=== PATIENT | female | born 1950 | race Caucasian/White ===

== ENCOUNTER 2018-11-11 20:55 | Emergency (ER) | payer OTHER ==
--- OUTSIDE RECORDS SUMMARY | 2018-11-11 20:57 | XMS REPORT | Clinical Summary ---
:1950 Author Organization [facility] Address [address] [place] [address] Care Team Providers Name Role Phone Robby Nelson MD Primary Care Provider Allergies Active Allergy Reactions Severity Noted Date Comments Timolol Rash High 09/01/2018 Brimonidine-Timolol 06/23/2018 Difluprednate Other (See Comments) 09/01/2018 increasing high blood pressure causing eye stroke Cephalexin 06/25/2018 Medications Medication Sig Dispensed Refills Start Date End Date Status umeclidinium (INCRUSE Inhale. 0 Active ELLIPTA) 62.5 mcg/actuation blister with device levoFLOXacin Take 500 mg by 0 Active (LEVAQUIN) 500 MG mouth daily. tablet aspirin 325 MG tablet Take 325 mg by 0 Active mouth daily. brinzolamide-brimonid Administer 1 drop 16 mL 3 09/01/2018 Active ine (SIMBRINZA) 1-0.2 to both eyes 3 % drops,suspension (three) times a day. TRAVATAN Z 0.004 % INSTILL 1 DROP INTO 3 08/28/2018 Active EACH EYE ONCE A DAY Active Problems Problem Noted Date Chronic angle-closure glaucoma of both eyes, moderate stage 09/06/2018 Overview: IOP satisfactory. Continue Simbrinza TID OU. Taking Travatan Qam OU. Nuclear sclerotic cataract of both eyes 09/06/2018 Overview: Not visually significant. Defer surgery. Rx glasses given. Encounters Date Type Specialty Care Team Description 09/06/2018 Office Visit Ophthalmology Haydee Paige Chronic angle-closure glaucoma of both eyes, moderate stage (Primary Dx); MD Dee Nuclear sclerotic cataract of both eyes 09/01/2018 Office Visit Ophthalmology Haydee Paige Chronic angle-closure glaucoma of both eyes, moderate stage (Primary Dx); MD Dee Nuclear sclerotic cataract of both eyes 06/25/2018 [facility] MD Layne (CVA), unspecified mechanism (HCC) (Primary Dx) after 11/10/2017 Family History Medical History Relation Name Comments Stroke Father Diabetes Mother Stroke Mother Relation Name Status Comments Father Mother Social History Tobacco Use Types Packs/Day Years Used Date Never Smoker Smokeless Tobacco: Never Used Alcohol Use Drinks/Week oz/Week Comments No Alcohol Habits Answer Date Recorded How often do you have a drink containing alcohol? Never 06/25/2018 How many drinks containing alcohol do you have on a typical Not asked day when you are drinking? How often do you have six or more drinks on one occasion? Not asked Sex Assigned at Date Recorded Not on file Job Start Date Occupation Industry Not on file Not on file Not on file Travel History Travel Start Travel End No recent travel history available. Last Filed Vital Signs Vital Sign Reading Time Taken Blood Pressure 149/77 06/25/2018 3:30 PM [employer] Pulse 60 06/25/2018 3:30 PM [employer] Temperature 36.2 C (97.2 F) 06/25/2018 10:52 AM [employer] Respiratory Rate 18 06/25/2018 3:30 PM [employer] Oxygen Saturation 96% 06/25/2018 3:30 PM [employer] Inhaled Oxygen Concentration - - Weight 70.3 kg (155 lb) 06/25/2018 10:52 AM [employer] Height 167.6 cm (5' 6") 06/25/2018 10:52 AM [employer] Body Mass Index 25.02 06/25/2018 10:52 AM [employer] Plan of Treatment Date Type Specialty Care Team Description 12/08/2018 Office Visit Ophthalmology Haydee Paige MD [address] [facility] [address] [place] [id number] Health Maintenance Due Date Last Done Comments BREAST CANCER SCREENING 1999 COLON CANCER SCREENING 1999 SHINGLES VACCINES (#1) 1999 65+ PNEUMOCOCCAL VACCINE (1 of 2 - PCV13) 2014 PNEUMOCOCCAL POLYSACCHARIDE VACCINE AGE 65 AND OVER 2014 INFLUENZA VACCINE 02/22/2019 Procedures Procedure Name Priority Date/Time Associated Comments Diagnosis OCT, OPTIC NERVE - OU - Routine 09/01/2018 10:55 Chronic Results for this BOTH EYES AM [employer] angle-closure procedure are in glaucoma of both the results eyes, moderate section. stage AUTOMATED VISUAL FIELD, Routine 09/01/2018 10:46 Chronic Results for this EXTENDED - OU - BOTH AM [employer] angle-closure procedure are in EYES glaucoma of both the results eyes, moderate section. stage CT ANGIOGRAM NECK W WO STAT 06/25/2018 12:46 Results for this CONTRAST PM [employer] procedure are in the results section. CT ANGIOGRAM HEAD W WO STAT 06/25/2018 12:45 Results for this CONTRAST PM [employer] procedure are in the results section. HEMOGLOBIN A1C STAT 06/25/2018 12:24 Results for this PM [employer] procedure are in the results section. LIPID PANEL STAT 06/25/2018 11:38 Results for this AM [employer] procedure are in the results section. ESTIMATED GFR STAT 06/25/2018 11:38 Results for this AM [employer] procedure are in the results section. PARTIAL THROMBOPLASTIN STAT 06/25/2018 11:38 Results for this TIME (PTT) AM [employer] procedure are in the results section. PROTHROMBIN TIME WITH STAT 06/25/2018 11:38 Results for this INR AM [employer] procedure are in the results section. B NATRIURETIC PEPTIDE STAT 06/25/2018 11:38 Results for this AM [employer] procedure are in the results section. TROPONIN STAT 06/25/2018 11:38 Results for this AM [employer] procedure are in the results section. COMPREHENSIVE METABOLIC STAT 06/25/2018 11:38 Results for this PANEL AM [employer] procedure are in the results section. HC COMPLETE BLD COUNT STAT 06/25/2018 11:38 Results for this W/AUTO DIFF AM [employer] procedure are in the results section. ECG 12-LEAD STAT 06/25/2018 11:36 Results for this AM [employer] procedure are in the results section. [facility], E/M Routine 06/25/2018 11:25 Results for this 30-74 MINUTES AM [employer]SEMBLER procedure are in the results section. CT HEAD WO CONTRAST STAT 06/25/2018 11:13 Results for this AM [employer]SEMBLER procedure are in the results section. after 11/10/2017 Results OCT, Optic Nerve - OU - Both Eyes (09/01/2018 10:55 AM FISH STRINGER ASSEMBLER) Narrative Performed At Right Eye Temporal thickness was showing abnormal thinning. Superior thickness was showing abnormal thinning. Nasal thickness was showing abnormal thinning. Inferior thickness was showing abnormal thinning. Left Eye Temporal thickness was showing abnormal thinning. Superior thickness was showing abnormal thinning. Nasal thickness was showing abnormal thinning. Inferior thickness was showing abnormal thinning. Notes G=35/41 Automated Visual Field, Extended - OU - Both Eyes (09/01/2018 10:46 AM FISH STRINGER ASSEMBLER) Narrative Performed At Right Eye Threshold was 24-2. Strategy was CHARITY. Reliability was good. Progression has been stable. -18.99. Findings include superior altitudinal defect. Left Eye Threshold was 24-2. Strategy was CHARITY. Reliability was poor. Progression has been stable. -15.03. Findings include superior altitudinal defect. CTA Neck W Wo Contrast (06/25/2018 12:46 PM FISH STRINGER ASSEMBLER) Narrative Performed At EXAMINATION: CT ANGIOGRAM NECK W WO CONTRAST RADIANT CLINICAL HISTORY: STROKE COMPARISON:None TECHNIQUE: Imaging of the cervical circulation was obtained from the upper thorax to the skull base during the arterial phase of enhancement. MIP multiplanar and 3D reconstructed images were performed on a separate workstation. CT imaging was performed with iterative reconstruction techniques and/or automated exposure control to reduce radiation dose. FINDINGS: The common carotid arteries, carotid bulbs, internal carotid arteries and external carotid arteries are normal in caliber and contour.There is 0% ICA stenosis by NASCET criteria. The vertebral arteries are patent throughout the visualized cervical segments without significant stenosis. No significant incidental thyroid lesion is seen. IMPRESSION: Unremarkable CTA of the neck. [facility]-[id number] Procedure Note Interface, Radiology Results Incoming - 06/25/2018 12:55 PM FISH STRINGER ASSEMBLER EXAMINATION: CT ANGIOGRAM NECK W WO CONTRAST CLINICAL HISTORY: STROKE COMPARISON: None TECHNIQUE: Imaging of the cervical circulation was obtained from the upper thorax to the skull base during the arterial phase of enhancement. MIP multiplanar and 3D reconstructed images were performed on a separate workstation. CT imaging was performed with iterative reconstruction techniques and/or automated exposure control to reduce radiation dose. FINDINGS: The common carotid arteries, carotid bulbs, internal carotid arteries and external carotid arteries are normal in caliber and contour. There is 0% ICA stenosis by NASCET criteria. The vertebral arteries are patent throughout the visualized cervical segments without significant stenosis. No significant incidental thyroid lesion is seen. IMPRESSION: Unremarkable CTA of the neck. [facility]-[id number] Performing Organization Address [facility]/Zipcode Phone Number JAMAL [address] [place] [address] CTA Head W Wo Contrast (06/25/2018 12:45 PM FISH STRINGER ASSEMBLER) Narrative Performed At EXAMINATION: CT [facility]GIOGRAM HEAD [facility] CLINICAL H[facility]: STROKE COMPARISON:None TECHNIQUE:Imaging of the intracranial circulation was obtained from the skull base to the vertex during the arterial phase of enhancement. MIP multiplanar and 3D reconstructed images were performed on a separate workstation. CT imaging was performed with iterative reconstruction techniques and/or automated exposure control to reduce radiation dose. FINDINGS: No proximal branch occlusion or high grade stenosis of the branches of the mentasta of Rivera, ICAs, or vertebrobasilar system is seen. There is a prominent right posterior commuting artery and a hypoplastic right ICU RN P1 segment. No aneurysm or vascular malformation is identified. The major dural venous sinuses opacify normally. The exam is not tailored to evaluate the brain parenchyma.No gross brain parenchymal abnormality is seen. IMPRESSION: Unremarkable CTA of the brain. [facility]-[id number] Procedure Note Interface, Radiology Results Incoming - 06/25/2018 12:53 PM FISH [employer]ING[employer] ASSEMBLER EXAMINATION: CT ANGIOGRAM HEAD W WO CONTRAST CLINICAL HISTORY: STROKE COMPARISON: None TECHNIQUE: Imaging of the intracranial circulation was obtained from the skull base to the vertex during the arterial phase of enhancement. MIP multiplanar and 3D reconstructed images were performed on a separate workstation. CT imaging was performed with iterative reconstruction techniques and/or automated exposure control to reduce radiation dose. FINDINGS: No proximal branch occlusion or high grade stenosis of the branches of the mentasta of Rivera, ICAs, or vertebrobasilar system is seen. There is a prominent right posterior commuting artery and a hypoplastic right ICU RN P1 segment. No aneurysm or vascular malformation is identified. The major dural venous sinuses opacify normally. The exam is not tailored to evaluate the brain parenchyma. No gross brain parenchymal abnormality is seen. IMPRESSION: Unremarkable CTA of the brain. [facility]-[id number] Performing Organization Address [facility] Phone Number JAMAL [address] [place] [address] Hemoglobin A1c (06/25/2018 12:24 PM FISH STRINGER ASSEMBLER) Hemoglobin A1C 6.0 (H) 4.0 - 5.6 % [facility] Comment: HbA1c cutoffs for diagnosing diabetes: 4.0% - 5.6%=normal 5.7% - 6.4%=increased risk for diabetes (prediabetes) >=6.5%=diabetes Goals for glycemic control (ADA 2016) < 7.0%Target for non adults with diabetes. More or less stringent targets may be appropriate for individual patients. <7.5% Target for Children and adolescents with type 1 diabetes. Performing Organization Address [facility] Centercode Phone Number [facility] DEPARTMENT OF PATHOLOGY AND [address] [place], [place] [phone] Estimated GFR (06/25/2018 11:38 AM FISH STRINGER ASSEMBLER) Estimated GFR 60 mL/min/1.73 m2 [facility] Comment: HOSPITAL CatergoryUnitsInterpretation G1 >=90 Normal or high G2 60-89Mildly decreased [id number] to moderately decreased [id number] to severely decreased G4 15-29Severely decreased G5 <15Kidney failure The eGFR was calculated using the Chronic Kidney Disease Epidemiology Collaboration (CKD-EPI) equation. Interpretation is based on recommendations of the National Kidney Foundation-Kidney Disease Outcomes Quality Initiative (NKF-KDOQI) published in 2014. Specimen Plasma specimen Performing Organization Address [facility] Phone Number [facility] DEPARTMENT OF PATHOLOGY AND [address] [place] [phone] Troponin (06/25/2018 11:38 AM FISH STR[employer] ASSEMBLER) Troponin <0.30 0.00 - 0.30 ng/mL [facility] Comment: 0.30 - 1.49 ng/mlMay indicate increased risk of acute coronary syndrome. >=1.5 ng/mlConsistent with acute myocardial infarction. The diagnostic value of a single normal or non-diagnostic result is questionable.Serial samples at 2-6 hour intervals are required to rule out acute myocardial injury. Specimen Plasma specimen Performing Organization Address [facility] Centercode Phone Number [facility] DEPARTMENT OF PATHOLOGY AND [address] [place] [phone] [place] [phone] Partial thromboplastin time, activated (06/25/2018 11:38 AM FISH STRINGER ASSEMBLER) PTT 27.1 23.0 - 36.0 sec [facility] Comment: PTT therapeutic range for unfractionated heparin is 61.0-112.0 seconds which corresponds to Anti-Xa 0.3-0.7 U/ml. Specimen Blood Performing Organization Address City/[facility]/Zipcode Phone Number [facility] DEPARTMENT OF PATHOLOGY AND [address] [place] [phone] Prothrombin time with INR (06/25/2018 11:38 AM FISH STRINGER ASSEMBLER) Prothrombin time 12.9 11.5 - 14.5 sec [facility] INR 1.0 [facility] Comment: HOSPITAL The International Normalized Ratio (INR) is a therapeutic monitoring tool for patients who are stable on oral anticoagulant therapy. An INR of 2.0-3.0 is suggested for deep vein thrombosis/pulmonary embolism. Specimen Blood Performing Organization Address [facility] Phone Number [facility] DEPARTMENT OF PATHOLOGY AND [address] [place] [phone] CBC with platelet and differential (06/25/2018 11:38 AM FISH STR[employer] ASSEMBLER) WBC 9.35 4.50 - 11.00 k/uL [facility] RBC 4.24 4.20 - 5.50 m/uL [facility] HGB 13.4 12.0 - 16.0 g/dL [facility] HCT 39.9 37.0 - 47.0 % [facility] MCV 94.1 82.0 - 100.0 fL [facility] MCH 31.6 27.0 - 34.0 pg [facility] MCHC 33.6 31.0 - 37.0 g/dL [facility] RDW - SD 43.8 37.0 - 55.0 fL [facility] MPV 10.9 8.8 - 13.2 fL [facility] Platelet count 278 150 - 400 k/uL [facility] Nucleated RBC 0.00 /100 WBC [facility] Neutrophils 64.1 39.0 - 69.0 % [facility] Lymphocytes 25.5 25.0 - 45.0 % [facility] Monocytes 8.3 0.0 - 10.0 % [facility] Eosinophils 1.4 0.0 - 5.0 % [facility] Basophils 0.2 0.0 - 1.0 % [facility] Immature granulocytes 0.5Comment: "Immature 0.0 - 1.0 % [facility] granulocytes" [facility] (promyelocytes, myelocytes, metamyelocytes) Specimen Blood Performing Organization Address City/[facility]/Zipcode Phone Number [facility] DEPARTMENT OF PATHOLOGY AND [address] [place] [phone] [place] [address] B natriuretic peptide (06/25/2018 11:38 AM [employer]SEMBLER) BNP 19 0 - 100 pg/mL [facility] Specimen Blood Performing Organization Address City/[facility] Centercode Phone Number [facility] DEPARTMENT OF PATHOLOGY AND [address] [place] [phone] Lipid panel (06/25/2018 11:38 AM [employer]SEMBLER) Cholesterol 251 (H) <200 mg/dL [facility] Triglycerides 142 <150 mg/dL [facility] HDL cholesterol 78 >40 mg/dL [facility] LDL cholesterol 164 (H)Comment: Result <100 mg/dL [facility] obtained by direct [facility] measurement Lipid panel interpretation Irene [facility] Comment: HOSPITAL Total Cholesterol (mg/dL) <200 Desirable 606-398Qroldypegb-xfnl >=240High Triglycerides (mg/dL) <150 Normal 358-741Apavyxmrbq-hioh 200-499High >=500Very high HDL Cholesterol (mg/dL) <40Low (male) <40Low (female) LDL Cholesterol (mg/dL) <100 Optimal 100-129Near or above optimal 147-241Viyhginkws-rbrr 160-189High >=190Very high Risk Catergories that modify LDL goals. Risk CatergoriesLDL goal (mg/dL) CHD and CHD risk equivalent<100 (10-year risk >20%) Multiple (2+) risk factors <130 (10-year risk=<20%) 0-1 risk factors <160 (<10-year risk) Defining levels of lipids in metabolic syndrome Triglycerides>=150 mg/dL HDL Cholesterol Men<40 mg/dL Women<40 mg/dL Non-HDL cholesterol is a second target for therapy in persons with high triglycerides (>=200 mg/dL) Specimen Plasma specimen Performing Organization Address City/[facility]/Zipcode Phone Number [facility] DEPARTMENT OF PATHOLOGY AND [address] [place], [place] [phone] [place] [phone] Comprehensive metabolic panel (06/25/2018 11:38 AM [employer]SEMBLER) Sodium 136 135 - 148 mEq/L [facility] Potassium 3.7 3.5 - 5.0 mEq/L [facility] Chloride 98 98 - 112 mEq/L [facility] CO2 23 (L) 24 - 31 mEq/L [facility] Anion gap 15@ANIO 7 - 15 mEq/L [facility] BUN 11 8 - 23 mg/dL [facility] Creatinine 0.96 (H) 0.50 - 0.90 mg/dL [facility] Glucose 102 (H) 65 - 99 mg/dL [facility] Calcium 9.6 8.8 - 10.2 mg/dL [facility] Protein 7.8 6.3 - 8.3 g/dL [facility] Comment: HOSPITAL 4.6-7.0 g/dL 1 week 4.4-7.6 g/dL 7 months-1year5.1-7.3 g/dL 1-2 years5.6-7.5 g/dL >3 years6.0-8.0 g/dL 18-150 6.3-8.3 g/dL Albumin 4.1 3.5 - 5.0 g/dL [facility] A/G ratio 1.1 0.7 - 3.8 [facility] Alkaline phosphatase 112 (H) 35 - 104 U/L [facility] AST 26 10 - 35 U/L [facility] ALT 19 5 - 50 U/L [facility] Total bilirubin 0.6 0.0 - 1.2 mg/dL [facility] Specimen Plasma specimen Performing Organization Address City/[facility]/Zipcode Phone Number [facility] DEPARTMENT OF PATHOLOGY AND [address] [place] [address] [address] ECG 12 lead (06/25/2018 11:36 AM FISH STRINGER ASSEMBLER) Ventricular rate 69 [facility] Atrial rate 69 [facility] [place] interval 116 [facility] QRSD interval 84 [facility] QT interval 442 [facility] QTC interval 473 [facility] P axis 1 90 [facility] QRS axis 1 32 [facility] T wave axis 25 [facility] EKG impression Normal sinus rhythm-Nonspecific T wave abnormality-Abnormal ECG -In automated comparison with ECG of 23-APR-2013 15:08,-Nonspecific T wave abnormality now evident in Inferior leads-Nonspecific T wave abn [facility] ormality now evident in Lateral leads- Narrative Performed At Procedure Note Rula Rai-Layne Tillman MD - 06/25/2018 11:25 AM FISH STRINGER ASSEMBLER Emergency Department Provider Note Location: [facility] MAIN ED Patient ID: Antonia Urbina is a 68 y.o. female. Chief Complaint Chief Complaint Patient presents with Loss of Vision History of Present Illness 68 y/o female with PMHx of stroke presents to the ED with loss of vision. Pt states the loss of vision occurred around 4 AM this morning. States she is preparing for surgery tomorrow morning to put a stent in her right eye and has been given eye drops (Durezol 5 mL) to take. States she took 3 doses of the eye drops and the 3rd dose caused nausea and CASTRO. Believes the symptoms are related to the eye drops. Also states she has not taken her daily aspirin since 06/22, which she has been taking since she was 35 after a stroke due to control pills. States she can see through 3 holes. Also reports having bruising around her eye this morning and putting on an ice pack which helped. Went to see her eye doctor this morning, and she sent the pt here for a possible stroke. Also reports the right side blood vessel under her tongue is bigger and she has right sided weakness. Son reports noticing her not being able to raise her left eyebrow as high or smile properly. Pt states she was off aspirin in March and went to the chip bin operator, blood tests were shown to have blood clots, had a scan done and came out clear. History provided by: Patient (Son) spanish medical interpreter used: No Eye Problem Location: Both eyes Quality: Loss of vision. Severity: Severe Onset quality: Sudden Duration: 7 hours Timing: Constant Progression: Unchanged Chronicity: New Relieved by: Nothing Worsened by: Nothing Ineffective treatments: None tried Associated symptoms: decreased vision, headaches and nausea Associated symptoms: no vomiting Headaches: Severity: Moderate Onset quality: Sudden Duration: SOLE ASSESSOR. Timing: Constant Progression: Worsening Chronicity: New Nausea: Severity: Severe Onset quality: Sudden Nausea duration: SOLE ASSESSOR. Timing: Constant Progression: Worsening History Allergies Allergies Allergen Reactions Keflex [Cephalexin] Past Medical History Past Medical History: Diagnosis Date Asthma Glaucoma Stroke (HCC) Past Surgical History History reviewed. No pertinent surgical history. Past Family History No family history on file. Past Social History Social History Occupational History Not on file Tobacco Use Smoking status: Never Smoker Smokeless tobacco: Never Used Substance and Sexual Activity Alcohol use: No Frequency: Never Drug use: Not on file Sexual activity: Not on file Social History Narrative Not on file Medications ED Medications Not on File Review of Systems Review of Systems Constitutional: Negative for fever. Eyes: Positive for vision loss. Respiratory: Negative for shortness of breath. Cardiovascular: Negative for chest pain. Gastrointestinal: Positive for nausea. Negative for abdominal pain, diarrhea and vomiting. Musculoskeletal: Negative for myalgias. Neurological: Positive for headaches. All other systems reviewed and are negative. Physical Exam ED Triage Vitals [06/25/18 1052] Temp Heart Rate Respiratory Rate BP SpO2 97.2 F 79 17 (!) 187/88 98 % Temp Source Heart Rate Source Patient Position BP Location FiO2 % Oral Monitor Sitting Right arm -- Physical Exam Constitutional: She is oriented to person, place, and time. She appears well- developed and well-nourished. HENT: Head: Normocephalic and atraumatic. Left sided facial droop. Eyes: Conjunctivae and EOM are normal. Pupils are equal, round, and reactive to light. No scleral icterus. 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 Occular movement intact. Poor vision due to glaucoma. Neck: Normal range of motion. Neck supple. Cardiovascular: Normal rate, regular rhythm, normal heart sounds and intact distal pulses. Exam reveals no gallop and no friction rub. No murmur heard. Pulmonary/Chest: Effort normal and breath sounds normal. She has no wheezes. She has no rales. Abdominal: Soft. Bowel sounds are normal. She exhibits no mass. There is no tenderness. There is no rebound and no guarding. Musculoskeletal: Pulses equal, no cyanosis. Neurovascularly intact. Full, normal range of motion. No peripheral edema. Neurological: She is alert and oriented to person, place, and time. No cranial nerve deficit. Awake, alert, oriented to person, place, time, and situation. Cranial nerves II -XII are grossly intact. GCS 15. Motor strength 5/5 in all extremities. Sensory grossly intact. Cerebellar exam normal. Normal gait. Skin: Skin is warm and dry. Psychiatric: Awake, alert with orientation to person, place and time. Behavior mood, and affect within normal limits. ED Course ED Course as of Jun 25 1512 Sun Jun 25, 2018 1110 Consulted with opthalmology, sent here for worsening homonymous hemianopsia on right side and flattening of left eyebrow. No acute angle glaucoma. [HG] 1132 Consulted with stroke team. [HG] 1441 Patient is refusing MRI. Stroke team consulted. They are at the bedside and evaluated the patient. If patient wants to go home and does not get the MRI she will have to sign out AMA. [NN] 1502 I have personally reviewed and interpreted the patient's labs and imaging studies during their visit in the ED. Jessica Rai MD [HG] ED Course User Index [HG] JulietaHannah N [NN] Jessica Rai MD Clinical Impressions as of Jun 25 1512 Cerebrovascular accident (CVA), unspecified mechanism (HCC) [facility] Number of Diagnoses or Management Options Cerebrovascular accident (CVA), unspecified mechanism (HCC): new and requires workup Amount and/or Complexity of Data Reviewed Clinical lab tests: ordered and reviewed Tests in the radiology section of CPT: reviewed and ordered Tests in the medicine section of CPT: ordered and reviewed Obtain history from someone other than the patient: yes Discuss the patient with other providers: yes Independent visualization of images, tracings, or specimens: yes Risk of Complications, Morbidity, and/or Mortality Presenting problems: high Diagnostic procedures: high Management options: high Patient Progress Patient progress: stable Labs Results for orders placed or performed during the hospital encounter of CBC with platelet and differential Result Value Ref Range WBC 9.35 4.50 - 11.00 k/uL RBC 4.24 4.20 - 5.50 m/uL HGB 13.4 12.0 - 16.0 g/dL HCT 39.9 37.0 - 47.0 % MCV 94.1 82.0 - 100.0 fL MCH 31.6 27.0 - 34.0 pg MCHC 33.6 31.0 - 37.0 g/dL RDW - SD 43.8 37.0 - 55.0 fL MPV 10.9 8.8 - 13.2 fL Platelet count 278 150 - 400 k/uL Nucleated RBC 0.00 /100 WBC Neutrophils 64.1 39.0 - 69.0 % Lymphocytes 25.5 25.0 - 45.0 % Monocytes 8.3 0.0 - 10.0 % Eosinophils 1.4 0.0 - 5.0 % Basophils 0.2 0.0 - 1.0 % Immature granulocytes 0.5 0.0 - 1.0 % Comprehensive metabolic panel Result Value Ref Range Sodium 136 135 - 148 mEq/L Potassium 3.7 3.5 - 5.0 mEq/L Chloride 98 98 - 112 mEq/L CO2 23 (L) 24 - 31 mEq/L Anion gap 15@ANIO 7 - 15 mEq/L BUN 11 8 - 23 mg/dL Creatinine 0.96 (H) 0.50 - 0.90 mg/dL Glucose 102 (H) 65 - 99 mg/dL Calcium 9.6 8.8 - 10.2 mg/dL Protein 7.8 6.3 - 8.3 g/dL Albumin 4.1 3.5 - 5.0 g/dL A/G ratio 1.1 0.7 - 3.8 Alkaline phosphatase 112 (H) 35 - 104 U/L AST 26 10 - 35 U/L ALT 19 5 - 50 U/L Total bilirubin 0.6 0.0 - 1.2 mg/dL Troponin Result Value Ref Range Troponin <0.30 0.00 - 0.30 ng/mL B natriuretic peptide Result Value Ref Range BNP 19 0 - 100 pg/mL Prothrombin time with INR Result Value Ref Range Prothrombin time 12.9 11.5 - 14.5 sec INR 1.0 Partial thromboplastin time, activated Result Value Ref Range PTT 27.1 23.0 - 36.0 sec Estimated GFR Result Value Ref Range Estimated GFR 60 mL/min/1.73 m2 Lipid panel Result Value Ref Range Cholesterol 251 (H) <200 mg/dL Triglycerides 142 <150 mg/dL HDL cholesterol 78 >40 mg/dL LDL cholesterol 164 (H) <100 mg/dL Lipid panel interpretation SeeBelow Hemoglobin A1c Result Value Ref Range Hemoglobin A1C 6.0 (H) 4.0 - 5.6 % ECG 12 lead Result Value Ref Range Ventricular rate 69 Atrial rate 69 WV interval 116 QRSD interval 84 QT interval 442 QTC interval 473 P axis 1 90 QRS axis 1 32 T wave axis 25 EKG impression Normal sinus rhythm-Nonspecific T wave abnormality-Abnormal ECG-In automated comparison with ECG of 23-APR-2013 15:08,-Nonspecific T wave abnormality now evident in Inferior leads-Nonspecific T wave abnormality now evident in Lateral leads Radiology Cta Head W Wo Contrast Result Date: 06/25/2018 Narrative: EXAMINATION: CT ANGIOGRAM HEAD W WO CONTRAST CLINICAL HISTORY: STROKE COMPARISON: None TECHNIQUE: Imaging of the intracranial circulation was obtained from the skull base to the vertex during the arterial phase of enhancement. MIP multiplanar and 3D reconstructed images were performed on a separate workstation. CT imaging was performed with iterative reconstruction techniques and/or automated exposure control to reduce radiation dose. FINDINGS: No proximal branch occlusion or high grade stenosis of the branches of the mentasta of [place], ICAs, or vertebrobasilar system is seen. There is a prominent right posterior commuting artery and a hypoplastic right ICU RN P1 segment. No aneurysm or vascular malformation is identified. The major dural venous sinuses opacify normally. The exam is not tailored to evaluate the brain parenchyma. No gross brain parenchymal abnormality is seen. IMPRESSION: Unremarkable CTA of the brain. [facility]-[id number] Ct Head Wo Contrast Result Date: 06/25/2018 Narrative: EXAMINATION: CT HEAD WO CONTRAST CLINICAL HISTORY: CVA COMPARISON: None TECHNIQUE: Noncontrast CT of the brain was performed from the skull base to the vertex. Both soft tissue and bone reconstruction algorithms are interpreted. CT imaging was performed with iterative reconstruction techniques and/or automated exposure control to reduce radiation dose. FINDINGS: No intracranial hemorrhage, extra-axial collection, or mass-effect is seen. No acute cortical infarct is identified. No hyperdense vessel is seen. No air-fluid level is seen in the visualized portions of the paranasal sinuses. Mastoid air cells are clear. IMPRESSION: No acute intracranial abnormality identified. [facility]- [id number] Cta Neck W Wo Contrast Result Date: 06/25/2018 Narrative: EXAMINATION: CT ANGIOGRAM NECK W WO CONTRAST CLINICAL HISTORY: STROKE COMPARISON: None TECHNIQUE: Imaging of the cervical circulation was obtained from the upper thorax to the skull base during the arterial phase of enhancement. MIP multiplanar and 3D reconstructed images were performed on a separate workstation. CT imaging was performed with iterative reconstruction techniques and/or automated exposure control to reduce radiation dose. FINDINGS: The common carotid arteries, carotid bulbs, internal carotid arteries and external carotid arteries are normal in caliber and contour. There is 0% ICA stenosis by NASCET criteria. The vertebral arteries are patent throughout the visualized cervical segments without significant stenosis. No significant incidental thyroid lesion is seen. IMPRESSION: Unremarkable CTA of the neck. [facility]-[id number] Procedures Critical Care Performed by: Jessica Rai MD Authorized by: Jessica Rai MD Critical care provider statement: Critical care time (minutes): 35 Critical care start time: 06/25/2018 11:01 AM Critical care end time: 06/25/2018 11:36 AM Critical care time was exclusive of: Separately billable procedures and treating other patients Critical care was necessary to treat or prevent imminent or life-threatening deterioration of the following conditions: Stroke. Critical care was time spent personally by me on the following activities: Blood draw for specimens, discussions with consultants, examination of patient, interpretation of cardiac output measurements, ordering and performing treatments and interventions, ordering and review of laboratory studies, ordering and review of radiographic studies, pulse oximetry , re-evaluation of patient's condition and review of old charts ECG 12 lead Date/Time: 06/25/2018 11:54 AM Performed by: Jessica Rai MD Authorized by: Jessica Rai MD ECG reviewed by ED Physician in the absence of a readers' advisory service librarian: yes Interpretation: Interpretation: abnormal Rate: ECG rate: 63 ECG rate assessment: normal Rhythm: Rhythm: sinus rhythm Ectopy: Ectopy: none QRS: QRS axis: Normal QRS intervals: Normal Conduction: Conduction: normal ST segments: ST segments: Non-specific T waves: T waves: inverted Inverted: III Differential Diagnoses This patient has a differential diagnosis of stroke, TIA, glaucoma, bleed. Final Diagnoses Final diagnoses: Cerebrovascular accident (CVA), unspecified mechanism (HCC) Disposition This patient has a disposition of AMA. ED Attestations Scribe Attestation: This document is recorded by Hannah Rendon acting as a scribe under the direction and presence of Jessica Rai MD. Provider attestation of scribe: Jessica Rai MD: I personally performed the services recorded by the scribe in my presence. I confirm the scribe's documentation has been reviewed by me to accurately record my work, treatment, procedures, and medical decision making. The patient has decided to leave against medical advice because she does not want an MRI and she wants to go for her glaucoma surgery tomorrow. She states that she does not want to get further workup for her stroke but that she will restart her aspirin. the patient has normal mental status and adequate capacity to make medical decisions. The patient refuses hospital admission and wants to be discharged. The risks have been explained to the patient, including stroke, worsening illness, chronic pain, permanent disability and . The benefits of admission have also been explained, including the availability and proximity of nurses, physicians, monitoring, diagnostic testing, treatment of her stroke. The patient was able to understand and state the risks and benefits of hospital admission. This was witnessed by nurse Jerel EDWARDS and me. They had the opportunity to ask questions about their medical condition. The patient was treated to the extent that they would allow and knows that they may return for care at any time. Follow-up has been discussed and arranged with Ophthalmology and Dr. Perkins. The patient understands they can return to the Ed at any time for worsening symptoms. MD Julieta Urban Hansi N 06/25/18 1156 Hannah Rendon 06/25/18 1512 Jessica Rai MD 06/28/18 1509 Performing Organization Address City/State/Zipcode Phone Number [facility] [address] [place] [address] CRITICAL CARE (06/25/2018 11:25 AM FISH STRINGER ASSEMBLER) Narrative Performed At Jessica Rai MD 06/28/20183:08 PM Critical Care Performed by: Jessica Rai MD Authorized by: Jessica Rai MD Critical care provider statement: Critical care time (minutes):35 Critical care start time:06/25/2018 11:01 AM Critical care end time:06/25/2018 11:36 AM Critical care time was exclusive of:Separately billable procedures and treating other patients Critical care was necessary to treat or prevent imminent or life-threatening deterioration of the following conditions: Stroke. Critical care was time spent personally by me on the following activities:Blood draw for specimens, discussions with consultants, examination of patient, interpretation of cardiac output measurements, ordering and performing treatments and interventions, ordering and review of laboratory studies, ordering and review of radiographic studies, pulse oximetry, re-evaluation of patient's condition and review of old charts CT Head Wo Contrast (06/25/2018 11:13 AM FISH STRINGER ASSEMBLER) Narrative Performed At EXAMINATION: CT HEAD WO CONTRAST [facility] CLINICAL HISTORY: CVA COMPARISON:None TECHNIQUE: Noncontrast CT of the brain was performed from the skull base to the vertex. Both soft tissue and bone reconstruction algorithms are interpreted. CT imaging was performed with iterative reconstruction techniques and/or automated exposure control to reduce radiation dose. FINDINGS: No intracranial hemorrhage, extra-axial collection, or mass-effect is seen.No acute cortical infarct is identified. No hyperdense vessel is seen. No air-fluid level is seen in the visualized portions of the paranasal sinuses. Mastoid air cells are clear. IMPRESSION: No acute intracranial abnormality identified. [facility]-[id number] Procedure Note Hm Interface, Radiology Results Incoming - 06/25/2018 11:19 AM FISH STRINGER ASSEMBLER EXAMINATION: CT HEAD WO CONTRAST CLINICAL HISTORY: CVA COMPARISON: None TECHNIQUE: Noncontrast CT of the brain was performed from the skull base to the vertex. Both soft tissue and bone reconstruction algorithms are interpreted. CT imaging was performed with iterative reconstruction techniques and/or automated exposure control to reduce radiation dose. FINDINGS: No intracranial hemorrhage, extra-axial collection, or mass-effect is seen. No acute cortical infarct is identified. No hyperdense vessel is seen. No air-fluid level is seen in the visualized portions of the paranasal sinuses. Mastoid air cells are clear. IMPRESSION: No acute intracranial abnormality identified. [facility]-[id number] Performing Organization Address City/State/Zipcode Phone Number [facility] [address] [place] [address] after 11/10/2017 Insurance Payer Benefit Plan / Group Subscriber ID Type Phone Address MEDICARE MEDICARE PART A AND B xxxxxxxxxx Medicare [place], [place] COMMERCIAL MISC MISC COMMERCIAL xxxxxxxx Commercial Advance Directives Patient has advance care planning documents on file. For more information, please contact:Han Reese[address] [place] [address]
--- OUTSIDE RECORDS SUMMARY | 2018-11-11 20:58 | XMS REPORT | Continuity of Care Document ---
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, UNSPECIFIED W DX: Active [facility] E04.1=NONTOXIC 6 SINGLE THYROID NODULE Medications Medication Details Route Status Patient Ordering Order Source Instructions Provider Date Allergies, Adverse Reactions, Alerts Substance Category Reaction Severity Reaction Status Date Comments Source type Reported Immunizations Immunization Date Given Site Status Last Updated Comments Source Results Order Name Results Value Reference Date Interpretation Comments Source Range Thyroid Tx Thyroid Tx Patient Name: DENISE ROBERTO 06/04 - initial initial /2015 - [facility] hyperthyro hyperthyroid : 1950; Age: 66 years Female [facility] MR: [id number] Read by: Guero Lozano MD Dictated Date/time: 06/04/16 13:58 Electronically Signed by: Guero Lozano MD 06/04/16 14:01 FINAL REPORT Study: Thyroid Tx initial hyperthyroidism NM 06/04/2016 10:07 AM READING TEACHER Clinical Indication: Thyrotoxicosis. Hyperthyroidism since July 2015. COMPARISON: Thyroid uptake 05/27/2016. COMMENTS: The patient was informed of the therapeutic alternatives to radioactive thyroid treatment including surgery, medicine, and doing nothing. The patient was also informed about the risks and benefits of radioactive thyroid ablation. The potential complications including neck pain and tenderness, loss and thinning a hair, unknown risk of radiation, need for retreatment with iodine, and lifetime replacement with thyroid medication were all discussed with the patient. Precautionary measures including use of designated personal utensils, need for limited contact with others during the initial phase of therapy, flushing the toilet multiple times after use. The patient was advised not to be within 3 feet of another person for more than 4 hours at a time. Once the patient understood and agreed to the radioactive iodine ablation therapy, consent was signed and the dose was ordered. Confirmation of the dose by radiopharmaceutical light rail signal technician and physician were performed. The oral dose of 10 mCi of iodine-131 was administered to the patient while under the supervision of myself and the radiopharmaceutical light rail signal technician. The patient was in the isolation. Picture identificati on was requested of the patient prior to administration of the therapeutic dose. The patient suffered no immediate sequelae and was given instruction to drink plenty of liquids to aid in clearance of the radiopharmaceutical. The patient was observed for 30 minutes after treatment an d was then discharged from nuclear medicine department. IMPRESSION: 10 mCi of iodine-131 was given orally. SL: [id number] Thyroid Thyroid scan THYROID SCAN AND UPTAKE: 05/27 - scan - - Multiple /2015 - [facility] Multiple uptakes NM uptakes NM HISTORY: Thyroid nodules on outside ultrasound report, thyrotoxicosis. Read by: Keshawn Rice MD Dictated Date/time: 05/28/16 09:48 Electronically Signed by: Keshawn Rice MD 05/28/16 09:53 FINAL REPORT PROCEDURE: The patient ingested 229uCi of I-123 sodium orally followed by uptakes at 6 and 24 hours. Multiplanar imaging of the gland was done at 6 hours. FINDINGS: The 6 hour uptake is 6.8%(normal 6-24%). The 24 hour uptake is 19.7%(normal 10-30%). There is homogeneous uptake of activity in both lobes which appear normal in size. The left lobe is slightly larger than the right. There is a small focal area of increased activity in the upper pole of the right lobe. No other hot or cold nodules are demonstrated. The outside ultrasound images are not available for comparison. IMPRESSION: 1. Normal thyroid uptakes. 2. Small functioning nodule in the upper pole of the right lobe. [id number] Vital Signs Vital Sign Value Date Comments Source Encounters Location Location Encounter Encounter Reason Attending ADM DC Status Source Details Type Number For Provider Date Date [facility] [id number] Non 05/27 05/28 YOEL Blackmon Physician /2015 [facility] Outpatient [id number] [place] 06/04 06/05 YOEL Blackmon Moser /2015 [facility] Procedures Procedure Code Date Perfomer Comments Source
--- OUTSIDE RECORDS SUMMARY | 2018-11-11 20:58 | XMS REPORT | Summary of Care ---
:[address] [facility] Address [address] [place], [place] [address]- Encounter HQ Encntr_alias(FIN) [id number] Date(s): 06/04/16 - 06/04/16 [facility] [address] [place] [address]- Discharge Disposition: Home or Self Care Attending Physician: Leatha Moser MD Referring Physician: Leatha Moser MD Vital Signs No data available for this section Problem List No data available for this section Allergies, Adverse Reactions, Alerts No data available for this section Medications No data available for this section Results No data available for this section Immunizations No data available for this section Procedures No data available for this section Social History No data available for this section Assessment and Plan No data available for this section
--- OUTSIDE RECORDS SUMMARY | 2018-11-11 20:58 | XMS REPORT | Clinical Summary ---
:1950 Author Organization [facility] Address [address] [place] [address] Care Team Providers Name Role Phone Robby Nelson MD Primary Care Provider Allergies Active Allergy Reactions Severity Noted Date Comments Brimonidine-Timolol 06/23/2018 Cephalexin 06/23/2018 Medications Medication Sig Dispensed Refills Start Date End Date Status vit C/vit Take by 0 06/26/2018 Discontinued E/lutein/min/omega-3 mouth. (OCUVITE ORAL) travoprost (TRAVATAN Place 1 drop 0 06/26/2018 Discontinued Z) 0.004 % Drop into both ophthalmic drops eyes nightly. difluprednate Apply to 0 06/26/2018 Discontinued (DUREZOL) 0.05 % eye(s). Drop gatifloxacin Apply to 0 06/26/2018 Discontinued (ZYMAXID) 0.5 % Drop eye(s). fluticasone-vilanter Inhale by 0 06/26/2018 Discontinued ol (BREO ELLIPTA) mouth via 200-25 mcg/dose DsDv inhaler. fluticasone-vilanter Inhale 1 puff 0 06/26/2018 Discontinued ol (BREO ELLIPTA) by mouth via 100-25 mcg/dose DsDv inhaler daily. Active Problems Problem Noted Date Primary open angle glaucoma of both eyes, severe stage 06/20/2018 Social History Tobacco Use Types Packs/Day Years Used Date Never Smoker Smokeless Tobacco: Never Used Alcohol Use Drinks/Week oz/Week Comments Yes 1 monthly Sex Assigned at Date Recorded Not on file Job Start Date Occupation Industry Not on file Not on file Not on file Travel History Travel Start Travel End No recent travel history available. Last Filed Vital Signs Vital Sign Reading Time Taken Blood Pressure - - Pulse - - Temperature - - Respiratory Rate - - Oxygen Saturation - - Inhaled Oxygen Concentration - - Weight 70.3 kg (155 lb) 06/23/2018 4:57 PM [employer] Height 167.6 cm (5' 6") 06/23/2018 4:57 PM [employer] Body Mass Index 25.02 06/23/2018 4:57 PM [employer]ICAL CONCIERGE Plan of Treatment Not on file Results Not on fileafter 11/10/2017 Insurance Payer Benefit Plan / Group Subscriber ID Type Phone Address [employer] - D CARE [employer] PPO xxxxxxxx PPO
--- OUTSIDE RECORDS SUMMARY | 2018-11-11 20:58 | XMS REPORT | Summary of Care ---
:[address] [facility] Address [address] [place], [place] [address]- Encounter HQ Encntr_alias(FIN) [id number] Date(s): 05/27/16 - 05/27/[address] [facility] [address] [place] [address]- Discharge Disposition: Home or Self Care Attending Physician: Leatha Moser MD Referring Physician: PhysicianSalina MD Vital Signs No data available for [...]
[2018-11-11 21:44] LABS: Absolute Lymphocytes (CBC) 1.2 K/uL (0.7-4.9); Basophils % 0.3 % (0-1.3); Eosinophils % 0.4 % (0-4.4); Hematocrit 36.6 % (36.0-45.0); Lymphocytes % 9.3 % (15.3-44.8); MPV 9.8 fL (7.6-11.3); Monocytes % 7.3 % (3.3-12.3); RBC Red Blood Cell Count 3.92 M/uL (3.86-4.86)
[2018-11-11] MEDS ORDERED: NA CHLORIDE 0.9% 1,000 ML ONE (21:44)
[2018-11-11 21:47] LABS: Protime INR 0.89
[2018-11-11 22:03] LABS: ALT/SGPT 22 U/L (12-78); AST/SGOT 21 U/L (15-37); Albumin 3.8 g/dL (3.4-5.0); Alkaline Phosphatase 84 U/L (45-117); BUN Blood Urea Nitrogen 13 mg/dL (7-18); Bicarbonate 23 mmol/L (21-32); Bilirubin Direct 0.1 mg/dL (0-0.2); Bilirubin Total 0.3 mg/dL (0.2-1.0); Glucose Level 117 mg/dL (74-106); Magnesium 1.8 mg/dL (1.8-2.4); NT PRO-BNP 91 pg/mL (<125); Potassium 3.6 mmol/L (3.5-5.1); Protein, Total 6.6 g/dL (6.4-8.2); Sodium Level 136 mmol/L (136-145); Troponin (Emerg Dept Use Only) < 0.02 ng/mL (0.0-0.045)
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
--- NOTE | 2018-11-12 09:28 | RAD REPORT ---
EXAM DESCRIPTION: Rochelle Single View11/11/2018 9:58 pm CLINICAL HISTORY: Chest pain COMPARISON: none FINDINGS: The lungs appear clear of acute infiltrate. The heart is normal size IMPRESSION: No acute abnormalities displayed
--- NOTE | 2018-11-13 07:49 | EKG ---
Test Date: 2018-11-11 Test Time: 21:01:22 Vending Machine Operator: GRACE MEASUREMENT RESULTS: Intervals: Rate: 97 MN: 136 QRSD: 84 QT: 366 QTc: 464 [place]: P: 80 MN: 136 QRS: 72 T: 82 INTERPRETIVE STATEMENTS: Normal sinus rhythm Normal ECG No previous ECG available for comparison Electronically Signed On 11-13-18 07:48:09 CDT by Jermaine Tierney
== END 2018-11-11 23:42 | disposition home or self-care (01) ==
LOC: ER 20:55
DX: T67.0XXA Heatstroke and sunstroke, initial encounter (principal); Y92.832 Beach as the place of occurrence of the external cause; L95.9 Vasculitis limited to the skin, unspecified; J45.909 Unspecified asthma, uncomplicated; Z79.82 Long term (current) use of aspirin
CPT/HCPCS: 93005; 85025; 80048; 36415; 83735; 85610; 80076; 84484; 83880; 71045; 96360; 99284; J7030